=== PATIENT | female | born 1985 | race Two or more races ===

== ENCOUNTER 2020-10-10 16:04 | Inpatient (IN) | payer OTHER ==
[~2020-10-10] VITALS: Ht 172.7 cm; Wt 68.1 kg
[2020-10-10] MEDS ORDERED: CloNIDine 0.1 MG/24 HOUR PATCH TD ONE (17:00)
[2020-10-10] MEDS ORDERED: ONDANSETRON HCL 4 MG/2 ML VIAL IVP ONE (17:00)
[2020-10-10] MEDS ORDERED: SODIUM CHLORIDE 0.9% 1,000 ML IV ONE (17:00)
[2020-10-10] MEDS ORDERED: LORazepam 2 MG/ML VIAL ONE (17:23)
[2020-10-10 17:26] LABS: BASOPHILS % (AUTO) 0.3 % (0.0-2.0); EOSINOPHILS % (AUTO) 0 % (1.0-6.0); HEMATOCRIT 40.7 % (36-46); HEMOGLOBIN 13.7 g/dL (12.0-16.0); LYMPHOCYTES # (AUTO) 0.7 K/uL (1.0-4.8); LYMPHOCYTES % (AUTO) 10.7 % (22.0-44.0); MEAN CORPUSCULAR HEMOGLOBIN 29.9 pg (26.0-34.0); MEAN CORPUSCULAR HGB CONC 33.7 G/dL (31.0-37.0); MEAN CORPUSCULAR VOLUME 89 fL (80-100); MONOCYTES # (AUTO) 0.1 K/uL (0.1-1.0); MONOCYTES % (AUTO) 0.9 % (2.0-9.0); NEUTROPHILS # (AUTO) 5.7 K/uL (1.8-7.7); PLATELET COUNT (AUTO) 214 K/uL (150-450); RED BLOOD CELL COUNT(AUTO) 4.57 MIL/uL (4.00-5.20); RED CELL DISTRIBUTION WIDTH 12.8 % (11.5-14.5)
[2020-10-10 17:27] LABS: NEUTROPHILS % (AUTO) 88.1 % (40.0-70.0)
[2020-10-10] MEDS ORDERED: LORazepam 2 MG/ML VIAL IVP ONE (17:30)
[2020-10-10 17:37] LABS: ANION GAP 13 mmol/L (8-16); CALCIUM, TOTAL 9.5 mg/dL (8.8-10.5); CARBON DIOXIDE 25 mmol/L (22-29); CHLORIDE 103 mmol/L (98-107); CREATININE 0.71 mg/dL (0.60-1.30); GLOMERULAR FILTR. RATE CALC > 60 mL/min (>60); GLUCOSE,RANDOM 113 mg/dL (70-110); POTASSIUM 3.3 mmol/L (3.5-5.1); SODIUM SERUM 141 mmol/L (136-145); UREA NITROGEN, BLOOD 10 mg/dL (7-18)
[2020-10-10 17:44] LABS: ALANINE AMINOTRANSFERASE 21 U/L (12-78); ALKALINE PHOSPHATASE 76 U/L (46-116); ASPARTATE AMINOTRANSFERASE 21 U/L (15-37); BILIRUBIN,TOTAL 0.6 mg/dL (0.1-1.0); TOTAL PROTEIN, SERUM 7.8 g/dL (6.4-8.2)
[2020-10-10] MEDS ORDERED: POTASSIUM CHLORIDE 20 MEQ ER TABLET PO ONE (18:30)
[2020-10-10] MEDS ORDERED: KETOROLAC TROMETHAMINE 30 MG/ML VIAL IVP ONE (18:30)
[2020-10-10] MEDS ORDERED: ONDANSETRON HCL 4 MG/2 ML VIAL IVP PRN (19:15)
[2020-10-10 19:46] LABS: AMPHET/METH SCREEN,URINE POSITIVE (NEGATIVE); BARBITURATE SCREEN, URINE NEGATIVE (NEGATIVE); BENZODIAZEPINES SCREEN,URINE NEGATIVE (NEGATIVE); CANNABINOID SCREEN,URINE NEGATIVE (NEGATIVE); COCAINE SCREEN,URINE NEGATIVE (NEGATIVE); METHADONE SCREEN, URINE NEGATIVE (NEGATIVE); OPIATE SCREEN,URINE NEGATIVE (NEGATIVE); PHENCYCLIDINE SCREEN,URINE NEGATIVE (NEGATIVE)
[2020-10-10 20:32] LABS: COVID AG,FIA SOURCE NASOPHARYNGEAL
[2020-10-10 21:04] VITALS: BP 164/84
[2020-10-10 22:20] VITALS: BP 149/86
[2020-10-10 23:19] VITALS: BP 112/74
[2020-10-10] MEDS: HEPARIN SODIUM,PORCINE 5,000 UNITS/ML VIAL SQ SCH (23:30)
[2020-10-11] VITALS (8 sets, daily range): BP systolic 95–141; BP diastolic 56–82
[2020-10-11] MEDS: LORazepam 1 MG TABLET PO PRN ×4 (00:22→23:10)
[2020-10-11] MEDS: KETOROLAC TROMETHAMINE 30 MG/ML VIAL IVP PRN ×4 (00:23→22:04)
[2020-10-11 07:14] LABS: ANION GAP 15 mmol/L (8-16); CALCIUM, TOTAL 8.8 mg/dL (8.8-10.5); CARBON DIOXIDE 22 mmol/L (22-29); CHLORIDE 105 mmol/L (98-107); CREATININE 0.58 mg/dL (0.60-1.30); GLOMERULAR FILTR. RATE CALC > 60 mL/min (>60); GLUCOSE,RANDOM 93 mg/dL (70-110); POTASSIUM 3.5 mmol/L (3.5-5.1); SODIUM SERUM 142 mmol/L (136-145); UREA NITROGEN, BLOOD 12 mg/dL (7-18)
[2020-10-11] MEDS: HEPARIN SODIUM,PORCINE 5,000 UNITS/ML VIAL SQ SCH ×3 (08:00→23:10)
[2020-10-12] VITALS (8 sets, daily range): BP systolic 98–116; BP diastolic 56–75
[2020-10-12] MEDS: KETOROLAC TROMETHAMINE 30 MG/ML VIAL IVP PRN ×3 (05:05→17:43)
[2020-10-12] MEDS: HEPARIN SODIUM,PORCINE 5,000 UNITS/ML VIAL SQ SCH ×3 (08:17→23:46)
[2020-10-12] MEDS ORDERED: LOPERAMIDE HCL 2 MG/15 ML SUSPENSION UDCUP PO PRN (11:00)
[2020-10-12] MEDS ORDERED: PROMETHAZINE HCL 25 MG TABLET PO PRN (11:00)
[2020-10-12] MEDS ORDERED: CloNIDine HCL 0.1 MG TABLET PO PRN (11:00)
[2020-10-12] MEDS: SODIUM CHLORIDE 0.45% 1,000 ML IV SCH ×2 (11:10→23:46)
[2020-10-12] MEDS: HydrOXYzine PAMOATE 50 MG CAPSULE PO PRN ×2 (16:18→22:12)
[2020-10-12] MEDS: DICYCLOMINE HCL 10 MG CAPSULE PO PRN (19:34)
[2020-10-12] MEDS: TraZODone HCL 50 MG TABLET PO PRN (22:12)
[2020-10-12] MEDS: BACLOFEN 10 MG TABLET PO PRN (22:12)
[2020-10-13 04:25] VITALS: BP 112/76
[2020-10-13] MEDS: HydrOXYzine PAMOATE 50 MG CAPSULE PO PRN ×2 (04:26→12:03)
[2020-10-13] MEDS: KETOROLAC TROMETHAMINE 30 MG/ML VIAL IVP PRN ×3 (04:30→19:54)
[2020-10-13 07:36] VITALS: BP 93/62
[2020-10-13] MEDS: HEPARIN SODIUM,PORCINE 5,000 UNITS/ML VIAL SQ SCH ×3 (08:30→23:28)
[2020-10-13] MEDS: SODIUM CHLORIDE 0.45% 1,000 ML IV SCH (13:16)
[2020-10-13 14:08] VITALS: BP 102/64
[2020-10-13] MEDS: GABAPENTIN 300 MG CAPSULE PO SCH ×2 (15:58→23:28)
[2020-10-13] MEDS: TraZODone HCL 50 MG TABLET PO PRN (19:53)
[2020-10-13 20:00] VITALS: BP 112/64
[2020-10-14] MEDS: SODIUM CHLORIDE 0.45% 1,000 ML IV SCH ×2 (03:49→17:55)
[2020-10-14 03:52] VITALS: BP 96/63
[2020-10-14] MEDS: BACLOFEN 10 MG TABLET PO PRN ×2 (03:56→12:16)
[2020-10-14] MEDS: ACETAMINOPHEN 325 MG TABLET PO PRN ×3 (04:18→18:17)
[2020-10-14 07:49] VITALS: BP 106/64
[2020-10-14] MEDS: HEPARIN SODIUM,PORCINE 5,000 UNITS/ML VIAL SQ SCH ×3 (07:57→23:57)
[2020-10-14] MEDS: GABAPENTIN 300 MG CAPSULE PO SCH ×3 (07:58→19:43)
[2020-10-14] MEDS: DICYCLOMINE HCL 10 MG CAPSULE PO PRN (08:03)
[2020-10-14 08:44] VITALS: BP 106/64
[2020-10-14] MEDS: MAG HYDROX/AL HYDROX/SIMETH ES 30 ML SUSPENSION UDCUP PO PRN (10:18)
[2020-10-14] MEDS: LORazepam 1 MG TABLET PO PRN ×2 (12:23→19:42)
[2020-10-14 20:41] VITALS: BP 103/71
[2020-10-15] MEDS: TraZODone HCL 50 MG TABLET PO PRN (00:01)
[2020-10-15] MEDS: MAG HYDROX/AL HYDROX/SIMETH ES 30 ML SUSPENSION UDCUP PO PRN (00:01)
[2020-10-15] MEDS: ACETAMINOPHEN 325 MG TABLET PO PRN ×2 (05:17→14:56)
[2020-10-15 05:33] VITALS: BP 109/67
[2020-10-15] MEDS: SODIUM CHLORIDE 0.45% 1,000 ML IV SCH (06:40)
[2020-10-15] MEDS: BACLOFEN 10 MG TABLET PO PRN (06:40)
[2020-10-15 07:55] VITALS: BP 102/66
[2020-10-15] MEDS: HEPARIN SODIUM,PORCINE 5,000 UNITS/ML VIAL SQ SCH (08:31)
[2020-10-15] MEDS: HydrOXYzine PAMOATE 50 MG CAPSULE PO PRN (08:31)
[2020-10-15] MEDS: GABAPENTIN 300 MG CAPSULE PO SCH (08:31)
[2020-10-15] MEDS ORDERED: IBUPROFEN 800 MG TABLET PO SCH (09:57)
[2020-10-15 10:04] LABS: BASOPHILS % (AUTO) 0.6 % (0.0-2.0); EOSINOPHILS % (AUTO) 0.9 % (1.0-6.0); HEMATOCRIT 36.7 % (36-46); HEMOGLOBIN 12.2 g/dL (12.0-16.0); LYMPHOCYTES # (AUTO) 1.1 K/uL (1.0-4.8); LYMPHOCYTES % (AUTO) 21.9 % (22.0-44.0); MEAN CORPUSCULAR HGB CONC 33.3 G/dL (31.0-37.0); MEAN CORPUSCULAR VOLUME 90 fL (80-100); MONOCYTES # (AUTO) 0.2 K/uL (0.1-1.0); MONOCYTES % (AUTO) 4.3 % (2.0-9.0); NEUTROPHILS # (AUTO) 3.7 K/uL (1.8-7.7); NEUTROPHILS % (AUTO) 72.3 % (40.0-70.0); PLATELET COUNT (AUTO) 163 K/uL (150-450); RED BLOOD CELL COUNT(AUTO) 4.07 MIL/uL (4.00-5.20); RED CELL DISTRIBUTION WIDTH 13.2 % (11.5-14.5)
[2020-10-15 10:17] LABS: ANION GAP 6 mmol/L (8-16); CARBON DIOXIDE 28 mmol/L (22-29); CHLORIDE 106 mmol/L (98-107); CREATININE 0.61 mg/dL (0.60-1.30); GLOMERULAR FILTR. RATE CALC > 60 mL/min (>60); GLUCOSE,RANDOM 88 mg/dL (70-110); POTASSIUM 3.4 mmol/L (3.5-5.1); SODIUM SERUM 140 mmol/L (136-145); UREA NITROGEN, BLOOD 7 mg/dL (7-18)
[2020-10-15 10:21] LABS: ALANINE AMINOTRANSFERASE 19 U/L (12-78); ALBUMIN 2.9 g/dL (3.4-5.0); ALKALINE PHOSPHATASE 67 U/L (46-116); ASPARTATE AMINOTRANSFERASE 14 U/L (15-37); BILIRUBIN,TOTAL 0.2 mg/dL (0.1-1.0); TOTAL PROTEIN, SERUM 6.1 g/dL (6.4-8.2)
[2020-10-15] MEDS ORDERED: POTASSIUM CHLORIDE 20 MEQ ER TABLET PO ONE (11:00)
[2020-10-15 11:52] VITALS: BP 102/66
[2020-10-15] MEDS ORDERED: GABA-1181 PO (14:59)
[2020-10-15] MEDS: DICYCLOMINE HCL 10 MG CAPSULE PO PRN (15:21)
== END 2020-10-15 15:40 | DRG 897 ==
LOC: EMS 16:04 → 6S 19:04
PROVIDERS: ADMIT Internal Medicine; ATTEND Internal Medicine
DX: F11.13 Opioid abuse with withdrawal (principal); E87.6 Hypokalemia; F17.200 Nicotine dependence, unspecified, uncomplicated; M54.30 Sciatica, unspecified side; F15.10 Other stimulant abuse, uncomplicated; Z20.822 Contact with and (suspected) exposure to COVID-19
CPT/HCPCS: 80048; 80053; 85025; 99291; G0480; J1644; J1885; J2060; J2405; J7030

== ENCOUNTER 2021-01-22 02:03 | Inpatient (IN) | payer OTHER ==
[~2021-01-22] VITALS: Ht 174 cm; Wt 65.5 kg
[~2021-01-22 02:03] MED LIST: GABA-1181 PO
[2021-01-22 04:30] LABS: BASOPHILS % (AUTO) 0.5 % (0.0-2.0); EOSINOPHILS % (AUTO) 0.6 % (1.0-6.0); HEMATOCRIT 36.3 % (36-46); HEMOGLOBIN 12.5 g/dL (12.0-16.0); LYMPHOCYTES # (AUTO) 1.2 K/uL (1.0-4.8); LYMPHOCYTES % (AUTO) 21.6 % (22.0-44.0); MEAN CORPUSCULAR HEMOGLOBIN 31.8 pg (26.0-34.0); MEAN CORPUSCULAR HGB CONC 34.5 G/dL (31.0-37.0); MEAN CORPUSCULAR VOLUME 92 fL (80-100); MONOCYTES # (AUTO) 0.3 K/uL (0.1-1.0); MONOCYTES % (AUTO) 4.4 % (2.0-9.0); NEUTROPHILS # (AUTO) 4.2 K/uL (1.8-7.7); NEUTROPHILS % (AUTO) 72.9 % (40.0-70.0); PLATELET COUNT (AUTO) 232 K/uL (150-450); RED BLOOD CELL COUNT(AUTO) 3.94 MIL/uL (4.00-5.20); RED CELL DISTRIBUTION WIDTH 12.1 % (11.5-14.5)
[2021-01-22 04:38] LABS: ANION GAP 9 mmol/L (8-16); CARBON DIOXIDE 28 mmol/L (22-29); CHLORIDE 105 mmol/L (98-107); CREATININE 0.72 mg/dL (0.60-1.30); GLOMERULAR FILTR. RATE CALC > 60 mL/min (>60); GLUCOSE,RANDOM 104 mg/dL (70-110); POTASSIUM 3.3 mmol/L (3.5-5.1); SODIUM SERUM 142 mmol/L (136-145); UREA NITROGEN, BLOOD 12 mg/dL (7-18)
[2021-01-22 04:49] LABS: ALANINE AMINOTRANSFERASE 22 U/L (12-78); ALBUMIN 3.7 g/dL (3.4-5.0); ALKALINE PHOSPHATASE 82 U/L (46-116); ASPARTATE AMINOTRANSFERASE 17 U/L (15-37); BILIRUBIN,TOTAL 0.3 mg/dL (0.1-1.0); CALCIUM, TOTAL 8.9 mg/dL (8.8-10.5); HCG,QUANTITATIVE < 1 mIU/mL (0-6); TOTAL PROTEIN, SERUM 7.8 g/dL (6.4-8.2)
[2021-01-22] MEDS ORDERED: CloNIDine HCL 0.1 MG TABLET PO ONE (05:00)
[2021-01-22] MEDS ORDERED: LORazepam 1 MG TABLET PO ONE (05:00)
[2021-01-22] MEDS ORDERED: ONDANSETRON HCL 4 MG TABLET PO ONE (05:00)
[2021-01-22] MEDS ORDERED: POTASSIUM CHLORIDE 20 MEQ ER TABLET PO ONE (05:15)
[2021-01-22 05:17] LABS: COVID AG,FIA SOURCE NASOPHARYNGEAL
[2021-01-22 05:34] LABS: AMPHET/METH SCREEN,URINE POSITIVE (NEGATIVE); BARBITURATE SCREEN, URINE NEGATIVE (NEGATIVE); BENZODIAZEPINES SCREEN,URINE NEGATIVE (NEGATIVE); CANNABINOID SCREEN,URINE NEGATIVE (NEGATIVE); COCAINE SCREEN,URINE POSITIVE (NEGATIVE); METHADONE SCREEN, URINE NEGATIVE (NEGATIVE); OPIATE SCREEN,URINE POSITIVE (NEGATIVE)
[2021-01-22 05:38] LABS: APPEARANCE,URINE RPT (CLEAR); BILIRUBIN,URINE NEGATIVE (NEGATIVE); GLUCOSE, URINE (UA) NEGATIVE (NEGATIVE); KETONES,URINE 40 mg/dL (NEGATIVE); LEUKOCYTE ESTERASE ,URINE NEGATIVE (NEGATIVE); NITRATE,URINE NEGATIVE (NEGATIVE); OCCULT BLOOD,URINE NEGATIVE (NEGATIVE); PROTEIN,URINE NEGATIVE (NEGATIVE)
[2021-01-22 05:50] LABS: PHENCYCLIDINE SCREEN,URINE NEGATIVE (NEGATIVE)
[2021-01-22 05:52] LABS: BACTERIA,URINE Rare /HPF (None Seen); RBC,URINE None Seen /HPF (0-2); WBC,URINE 0-2 /HPF (0-5)
[2021-01-22] MEDS ORDERED: ONDANSETRON HCL 4 MG/2 ML VIAL IVP PRN ×2 (06:00→06:15)
[2021-01-22] MEDS ORDERED: 0.9% SODIUM CHLORIDE 10 ML SYRINGE IVP PRN (06:00)
[2021-01-22] MEDS ORDERED: ACETAMINOPHEN 325 MG TABLET PO PRN (06:00)
[2021-01-22] MEDS ORDERED: GABAPENTIN 300 MG CAPSULE PO SCH (06:30)
[2021-01-22] MEDS ORDERED: POTASSIUM CHL 10 MEQ/WATER 50 ML IV PRN (07:15)
[2021-01-22] MEDS ORDERED: POTASSIUM CHLORIDE 20 MEQ ER TABLET PO PRN (07:15)
[2021-01-22] MEDS: HEPARIN SODIUM,PORCINE 5,000 UNITS/ML VIAL SQ SCH ×2 (07:16→15:49)
[2021-01-22 08:35] VITALS: BP 114/77
[2021-01-22] MEDS ORDERED: KETOROLAC TROMETHAMINE 30 MG/ML VIAL IVP PRN (08:48)
[2021-01-22] MEDS: FAMOTIDINE 10 MG/ML 2 ML VIAL IVP SCH ×2 (09:00→20:07)
[2021-01-22] MEDS: ACETAMINOPHEN 325 MG TABLET PO PRN (10:08)
[2021-01-22] MEDS: GABAPENTIN 300 MG CAPSULE PO SCH ×2 (10:09→15:49)
[2021-01-22] MEDS: LORazepam 0.5 MG TABLET PO PRN (10:09)
[2021-01-22 15:25] VITALS: BP 101/67
[2021-01-22 20:55] VITALS: BP 102/72
[2021-01-23] MEDS: HEPARIN SODIUM,PORCINE 5,000 UNITS/ML VIAL SQ SCH ×4 (00:56→23:42)
[2021-01-23] MEDS: GABAPENTIN 300 MG CAPSULE PO SCH ×4 (00:56→23:42)
[2021-01-23 04:55] VITALS: BP 115/73
[2021-01-23 08:08] VITALS: BP 98/66
[2021-01-23] MEDS: ACETAMINOPHEN 325 MG TABLET PO PRN (08:52)
[2021-01-23] MEDS: FAMOTIDINE 10 MG/ML 2 ML VIAL IVP SCH ×2 (08:53→20:07)
[2021-01-23] MEDS ORDERED: SODIUM CHLORIDE 0.9% 1,000 ML IV ONE (11:45)
[2021-01-23 19:40] VITALS: BP 105/70
[2021-01-23] MEDS: LORazepam 0.5 MG TABLET PO PRN (20:05)
[2021-01-23] MEDS ORDERED: INFLUENZA VIRUS VACCINE QVS 2021-22 (6MO+)/PF 60 MCG/0.5 ML SYRINGE IM. ONE (23:45)
[2021-01-24] MEDS: LORazepam 0.5 MG TABLET PO PRN (03:40)
[2021-01-24 04:25] VITALS: BP 108/69
[2021-01-24 07:46] VITALS: BP 110/72
[2021-01-24 08:30] LABS: ANION GAP 9 mmol/L (8-16); CALCIUM, TOTAL 8.8 mg/dL (8.8-10.5); CARBON DIOXIDE 27 mmol/L (22-29); CHLORIDE 108 mmol/L (98-107); CREATININE 0.64 mg/dL (0.60-1.30); GLOMERULAR FILTR. RATE CALC > 60 mL/min (>60); GLUCOSE,RANDOM 92 mg/dL (70-110); POTASSIUM 3.5 mmol/L (3.5-5.1); SODIUM SERUM 144 mmol/L (136-145); UREA NITROGEN, BLOOD 9 mg/dL (7-18)
[2021-01-24] MEDS: GABAPENTIN 300 MG CAPSULE PO SCH ×3 (08:36→23:02)
[2021-01-24] MEDS: HEPARIN SODIUM,PORCINE 5,000 UNITS/ML VIAL SQ SCH ×3 (08:36→23:03)
[2021-01-24] MEDS: FAMOTIDINE 10 MG/ML 2 ML VIAL IVP SCH (08:36)
[2021-01-24] MEDS: CYCLOBENZAPRINE HCL 10 MG TABLET PO PRN ×2 (14:53→23:02)
[2021-01-24 20:12] VITALS: BP 106/71
[2021-01-24] MEDS: FAMOTIDINE 20 MG TABLET PO SCH (20:22)
[2021-01-25 05:48] VITALS: BP 110/74
[2021-01-25] MEDS: GABAPENTIN 300 MG CAPSULE PO SCH (07:46)
[2021-01-25] MEDS: FAMOTIDINE 20 MG TABLET PO SCH (07:46)
[2021-01-25] MEDS: HEPARIN SODIUM,PORCINE 5,000 UNITS/ML VIAL SQ SCH (07:47)
[2021-01-25 08:28] VITALS: BP 112/73
== END 2021-01-25 10:15 | DRG 897 ==
LOC: EMS 02:04 → 6S 08:15
PROVIDERS: ADMIT Internal Medicine; ATTEND Internal Medicine
DX: F11.13 Opioid abuse with withdrawal (principal); R65.10 Systemic inflammatory response syndrome (SIRS) of non-infectious origin without acute organ dysfunction; F41.9 Anxiety disorder, unspecified; E87.6 Hypokalemia; Z87.891 Personal history of nicotine dependence; Z98.891 History of uterine scar from previous surgery; Z20.822 Contact with and (suspected) exposure to COVID-19
CPT/HCPCS: 71045; 80048; 80053; 81001; 84702; 85025; 90686; 99285; G0480; J1644; J3490; J7030; Q0162; 36415-L1; 36415-TC; G0008; U0003

== ENCOUNTER 2021-12-03 13:54 | Inpatient (IN) | payer OTHER ==
[~2021-12-03] VITALS: Ht 172.7 cm; Wt 65.9 kg
[2021-12-03] MEDS ORDERED: SODIUM CHLORIDE 0.9% 1,000 ML IV ONE (14:45)
[2021-12-03] MEDS ORDERED: KETOROLAC TROMETHAMINE 30 MG/ML VIAL IVP ONE (14:45)
[2021-12-03 14:47] LABS: COVID AG,FIA SOURCE NASOPHARYNGEAL
[2021-12-03 14:49] LABS: BASOPHILS % (AUTO) 0.4 % (0.0-2.0); EOSINOPHILS % (AUTO) 0.3 % (1.0-6.0); HEMATOCRIT 33.8 % (36-46); HEMOGLOBIN 11.2 g/dL (12.0-16.0); LYMPHOCYTES # (AUTO) 0.7 K/uL (1.0-4.8); LYMPHOCYTES % (AUTO) 14.4 % (22.0-44.0); MEAN CORPUSCULAR HEMOGLOBIN 28.8 pg (26.0-34.0); MEAN CORPUSCULAR HGB CONC 33.2 G/dL (31.0-37.0); MEAN CORPUSCULAR VOLUME 87 fL (80-100); MONOCYTES # (AUTO) 0.1 K/uL (0.1-1.0); MONOCYTES % (AUTO) 2.4 % (2.0-9.0); NEUTROPHILS # (AUTO) 4.1 K/uL (1.8-7.7); NEUTROPHILS % (AUTO) 82.5 % (40.0-70.0); PLATELET COUNT (AUTO) 233 K/uL (150-450); RED CELL DISTRIBUTION WIDTH 14.1 % (11.5-14.5)
[2021-12-03 15:01] LABS: ANION GAP 9 mmol/L (8-16); CALCIUM, TOTAL 8.5 mg/dL (8.8-10.5); CARBON DIOXIDE 29 mmol/L (22-29); CHLORIDE 99 mmol/L (98-107); CREATININE 0.65 mg/dL (0.60-1.30); GLUCOSE,RANDOM 98 mg/dL (70-110); POTASSIUM 3.9 mmol/L (3.5-5.1); SODIUM SERUM 137 mmol/L (136-145); UREA NITROGEN, BLOOD 9 mg/dL (7-18)
[2021-12-03 15:02] LABS: GLOMERULAR FILTR. RATE CALC > 60 mL/min (>60)
[2021-12-03 15:07] LABS: ALANINE AMINOTRANSFERASE 17 U/L (12-78); ALBUMIN 3.3 g/dL (3.4-5.0); ALKALINE PHOSPHATASE 78 U/L (46-116); ASPARTATE AMINOTRANSFERASE 21 U/L (15-37); BILIRUBIN,TOTAL 0.4 mg/dL (0.1-1.0); TOTAL PROTEIN, SERUM 7.1 g/dL (6.4-8.2)
[2021-12-03] MEDS ORDERED: ONDANSETRON HCL 4 MG/2 ML VIAL IVP PRN (15:15)
[2021-12-03] MEDS ORDERED: ACETAMINOPHEN 325 MG TABLET PO PRN (15:15)
[2021-12-03] MEDS ORDERED: LOPERAMIDE HCL 2 MG CAPSULE PO PRN (15:30)
[2021-12-03] MEDS ORDERED: MAGNESIUM SULFATE 2 GM, MVI, ADULT NO.1 WITH VIT K 10 ML, THIAMINE 100 MG, FOLIC ACID 1... IV ONE ×5 (16:00)
[2021-12-03 16:27] VITALS: BP 107/64
[2021-12-03] MEDS: LORazepam 2 MG/ML VIAL IVP PRN (18:53)
[2021-12-03 19:55] VITALS: BP 114/70
[2021-12-03] MEDS: TEMAZEPAM 15 MG CAPSULE PO SCH (20:58)
[2021-12-04 05:47] VITALS: BP 128/79
[2021-12-04 08:06] VITALS: BP 133/82
[2021-12-04] MEDS: DICYCLOMINE HCL 10 MG CAPSULE PO PRN (08:58)
[2021-12-04] MEDS: ACETAMINOPHEN/CODEINE 300-15 MG TABLET PO PRN (08:58)
[2021-12-04 09:19] LABS: AMPHET/METH SCREEN,URINE POSITIVE (NEGATIVE); BARBITURATE SCREEN, URINE NEGATIVE (NEGATIVE); BENZODIAZEPINES SCREEN,URINE NEGATIVE (NEGATIVE); CANNABINOID SCREEN,URINE NEGATIVE (NEGATIVE); COCAINE SCREEN,URINE NEGATIVE (NEGATIVE); METHADONE SCREEN, URINE NEGATIVE (NEGATIVE); OPIATE SCREEN,URINE NEGATIVE (NEGATIVE); PHENCYCLIDINE SCREEN,URINE NEGATIVE (NEGATIVE)
[2021-12-04] MEDS: LORazepam 2 MG/ML VIAL IVP PRN ×2 (11:47→23:26)
[2021-12-04 13:14] VITALS: BP 140/84
[2021-12-04] MEDS ORDERED: KETOROLAC TROMETHAMINE 15 MG/ML VIAL IVP ONE (13:15)
[2021-12-04 15:12] VITALS: BP 138/80
[2021-12-04 20:00] VITALS: BP 120/78
[2021-12-04] MEDS: TEMAZEPAM 15 MG CAPSULE PO SCH (21:12)
[2021-12-05 04:21] VITALS: BP 138/82
[2021-12-05 06:31] LABS: BASOPHILS % (AUTO) 0.3 % (0.0-2.0); EOSINOPHILS % (AUTO) 0.2 % (1.0-6.0); HEMATOCRIT 34.1 % (36-46); HEMOGLOBIN 11.5 g/dL (12.0-16.0); LYMPHOCYTES # (AUTO) 1.2 K/uL (1.0-4.8); LYMPHOCYTES % (AUTO) 13.3 % (22.0-44.0); MEAN CORPUSCULAR HGB CONC 33.8 G/dL (31.0-37.0); MEAN CORPUSCULAR VOLUME 86 fL (80-100); MONOCYTES # (AUTO) 0.3 K/uL (0.1-1.0); MONOCYTES % (AUTO) 3.7 % (2.0-9.0); NEUTROPHILS # (AUTO) 7.1 K/uL (1.8-7.7); NEUTROPHILS % (AUTO) 82.5 % (40.0-70.0); PLATELET COUNT (AUTO) 241 K/uL (150-450); RED BLOOD CELL COUNT(AUTO) 3.97 MIL/uL (4.00-5.20); RED CELL DISTRIBUTION WIDTH 13.9 % (11.5-14.5)
[2021-12-05 06:40] LABS: ANION GAP 12 mmol/L (8-16); CALCIUM, TOTAL 8.3 mg/dL (8.8-10.5); CARBON DIOXIDE 25 mmol/L (22-29); CHLORIDE 103 mmol/L (98-107); CREATININE 0.56 mg/dL (0.60-1.30); GLUCOSE,RANDOM 99 mg/dL (70-110); POTASSIUM 3.2 mmol/L (3.5-5.1); SODIUM SERUM 140 mmol/L (136-145); UREA NITROGEN, BLOOD 6 mg/dL (7-18)
[2021-12-05 06:49] LABS: GLOMERULAR FILTR. RATE CALC > 60 mL/min (>60)
[2021-12-05 07:53] VITALS: BP 134/80
[2021-12-05] MEDS: ACETAMINOPHEN/CODEINE 300-15 MG TABLET PO PRN ×3 (08:46→23:54)
[2021-12-05] MEDS: LORazepam 2 MG/ML VIAL IVP PRN (10:08)
[2021-12-05] MEDS: METOCLOPRAMIDE HCL 5 MG/ML 2 ML VIAL IVP PRN (10:08)
[2021-12-05] MEDS ORDERED: POTASSIUM CHLORIDE 20 MEQ ER TABLET PO ONE (15:00)
[2021-12-05] MEDS: 1: MAGNESIUM SULFATE 2 GM, MVI, ADULT NO.1 WITH VIT K 10 ML, THIAMINE 100 MG, FOLIC ACID IV SCH ×5 (15:40)
[2021-12-05 15:51] VITALS: BP 103/62
[2021-12-05 19:10] VITALS: BP 128/84
[2021-12-05] MEDS: TEMAZEPAM 15 MG CAPSULE PO SCH (21:06)
[2021-12-06 04:27] VITALS: BP 121/79
[2021-12-06] MEDS ORDERED: SODIUM CHLORIDE 0.9% 1,000 ML ONE (05:21)
[2021-12-06] MEDS: 1: MAGNESIUM SULFATE 2 GM, MVI, ADULT NO.1 WITH VIT K 10 ML, THIAMINE 100 MG, FOLIC ACID IV SCH ×10 (05:39→18:14)
[2021-12-06] MEDS: ACETAMINOPHEN/CODEINE 300-15 MG TABLET PO PRN ×3 (05:39→18:14)
[2021-12-06 07:24] VITALS: BP 114/74
[2021-12-06] MEDS: METOCLOPRAMIDE HCL 5 MG/ML 2 ML VIAL IVP PRN (11:43)
[2021-12-06] MEDS: DICYCLOMINE HCL 10 MG CAPSULE PO PRN (11:49)
[2021-12-06 19:40] VITALS: BP 113/62
[2021-12-06] MEDS: TEMAZEPAM 15 MG CAPSULE PO SCH (20:34)
[2021-12-07 06:07] LABS: BASOPHILS % (AUTO) 0.7 % (0.0-2.0); EOSINOPHILS % (AUTO) 1.3 % (1.0-6.0); HEMATOCRIT 35.1 % (36-46); LYMPHOCYTES # (AUTO) 1.4 K/uL (1.0-4.8); LYMPHOCYTES % (AUTO) 22.2 % (22.0-44.0); MEAN CORPUSCULAR HEMOGLOBIN 29.2 pg (26.0-34.0); MEAN CORPUSCULAR HGB CONC 34.2 G/dL (31.0-37.0); MEAN CORPUSCULAR VOLUME 85 fL (80-100); MONOCYTES # (AUTO) 0.3 K/uL (0.1-1.0); MONOCYTES % (AUTO) 4.3 % (2.0-9.0); NEUTROPHILS # (AUTO) 4.6 K/uL (1.8-7.7); NEUTROPHILS % (AUTO) 71.5 % (40.0-70.0); PLATELET COUNT (AUTO) 249 K/uL (150-450); RED BLOOD CELL COUNT(AUTO) 4.12 MIL/uL (4.00-5.20); RED CELL DISTRIBUTION WIDTH 14.1 % (11.5-14.5)
[2021-12-07 06:18] LABS: ANION GAP 8 mmol/L (8-16); CALCIUM, TOTAL 8.1 mg/dL (8.8-10.5); CARBON DIOXIDE 26 mmol/L (22-29); CHLORIDE 105 mmol/L (98-107); CREATININE 0.59 mg/dL (0.60-1.30); GLUCOSE,RANDOM 92 mg/dL (70-110); POTASSIUM 3.7 mmol/L (3.5-5.1); SODIUM SERUM 139 mmol/L (136-145); UREA NITROGEN, BLOOD 6 mg/dL (7-18)
[2021-12-07 06:20] LABS: GLOMERULAR FILTR. RATE CALC > 60 mL/min (>60)
[2021-12-07] MEDS: 1: MAGNESIUM SULFATE 2 GM, MVI, ADULT NO.1 WITH VIT K 10 ML, THIAMINE 100 MG, FOLIC ACID IV SCH ×5 (07:26)
[2021-12-07 07:29] VITALS: BP 114/76
[2021-12-07] MEDS: ACETAMINOPHEN/CODEINE 300-15 MG TABLET PO PRN (08:40)
[2021-12-07] MEDS ORDERED: ACETAMINOPHEN 325 MG TABLET PO PRN (08:45)
[2021-12-07] MEDS ORDERED: GABA-1181 PO (08:46)
== END 2021-12-07 14:55 | DRG 897 ==
LOC: EMS 13:54 → 6S 15:29
PROVIDERS: ADMIT Internal Medicine; ATTEND Internal Medicine
DX: F11.13 Opioid abuse with withdrawal (principal); D64.9 Anemia, unspecified; Z20.822 Contact with and (suspected) exposure to COVID-19; Z79.899 Other long term (current) drug therapy
CPT/HCPCS: 80048; 80053; 80307; 84132; 85025; 99285; J1885; J2060; J2765; J3411; J3475; J3490; J7030

== ENCOUNTER 2022-12-18 08:56 | Inpatient (IN) | payer OTHER ==
[~2022-12-18] VITALS: Ht 172.7 cm; Wt 63.6 kg
[2022-12-18 09:54] LABS: COVID AG,FIA SOURCE NASOPHARYNGEAL
[2022-12-18 09:59] LABS: BASOPHILS % (AUTO) 0.5 % (0.0-2.0); EOSINOPHILS % (AUTO) 0.1 % (1.0-6.0); HEMATOCRIT 39.4 % (36-46); HEMOGLOBIN 13.1 g/dL (12.0-16.0); LYMPHOCYTES # (AUTO) 0.6 K/uL (1.0-4.8); LYMPHOCYTES % (AUTO) 8.5 % (22.0-44.0); MEAN CORPUSCULAR HGB CONC 33.2 G/dL (31.0-37.0); MEAN CORPUSCULAR VOLUME 84 fL (80-100); MONOCYTES # (AUTO) 0.2 K/uL (0.1-1.0); MONOCYTES % (AUTO) 2.9 % (2.0-9.0); NEUTROPHILS # (AUTO) 6.6 K/uL (1.8-7.7); PLATELET COUNT (AUTO) 267 K/uL (150-450); RED BLOOD CELL COUNT(AUTO) 4.66 MIL/uL (4.00-5.20); RED CELL DISTRIBUTION WIDTH 15.3 % (11.5-14.5)
[2022-12-18 10:09] LABS: ANION GAP 15 mmol/L (8-16); CALCIUM, TOTAL 9.1 mg/dL (8.8-10.5); CARBON DIOXIDE 20 mmol/L (22-29); CHLORIDE 102 mmol/L (98-107); CREATININE 0.55 mg/dL (0.60-1.30); GLOMERULAR FILTR. RATE CALC > 60 mL/min (>60); GLUCOSE,RANDOM 96 mg/dL (70-110); POTASSIUM 3.4 mmol/L (3.5-5.1); SODIUM SERUM 137 mmol/L (136-145)
[2022-12-18 10:14] LABS: ALANINE AMINOTRANSFERASE 13 U/L (12-78); ALBUMIN 3.5 g/dL (3.4-5.0); ALKALINE PHOSPHATASE 88 U/L (46-116); ASPARTATE AMINOTRANSFERASE 18 U/L (15-37); BILIRUBIN,TOTAL 0.5 mg/dL (0.1-1.0); TOTAL PROTEIN, SERUM 7.7 g/dL (6.4-8.2)
[2022-12-18] MEDS ORDERED: POTASSIUM CHLORIDE 10% 40 MEQ/30 ML LIQUID UDCUP PO ONE (11:15)
[2022-12-18] MEDS ORDERED: HydrOXYzine PAMOATE 50 MG CAPSULE PO PRN (13:45)
[2022-12-18] MEDS ORDERED: CloNIDine HCL 0.1 MG TABLET PO PRN (13:45)
[2022-12-18] MEDS ORDERED: POTASSIUM CHLORIDE 20 MEQ ER TABLET PO PRN (13:45)
[2022-12-18] MEDS ORDERED: POTASSIUM CHL 10 MEQ/WATER 50 ML IV PRN (13:45)
[2022-12-18] MEDS: IBUPROFEN 600 MG TABLET PO PRN (14:22)
[2022-12-18] MEDS: CloNIDine HCL 0.1 MG TABLET PO SCH ×2 (17:45→22:00)
[2022-12-18 19:45] VITALS: BP 115/72; PULSE 89; RESP 16; TEMP 98
[2022-12-18 22:13] VITALS: BP 106/75; PULSE 94
[2022-12-19] VITALS (10 sets, daily range): BP systolic 97–115; BP diastolic 50–73; PULSE 78–107; RESP 16–20; TEMP 97.7–98.9; O2SAT 96
[2022-12-19] MEDS: IBUPROFEN 600 MG TABLET PO PRN (00:02)
[2022-12-19] MEDS: CloNIDine HCL 0.1 MG TABLET PO SCH ×4 (06:00→20:45)
[2022-12-19] MEDS: FLUoxetine HCL 20 MG CAPSULE PO SCH (12:47)
[2022-12-19] MEDS: ONDANSETRON HCL 4 MG/2 ML VIAL IM PRN (18:26)
[2022-12-19 21:46] LABS: AMPHET/METH SCREEN,URINE NEGATIVE (NEGATIVE); BARBITURATE SCREEN, URINE NEGATIVE (NEGATIVE); BENZODIAZEPINES SCREEN,URINE NEGATIVE (NEGATIVE); CANNABINOID SCREEN,URINE NEGATIVE (NEGATIVE); COCAINE SCREEN,URINE NEGATIVE (NEGATIVE); METHADONE SCREEN, URINE NEGATIVE (NEGATIVE); OPIATE SCREEN,URINE NEGATIVE (NEGATIVE); PHENCYCLIDINE SCREEN,URINE NEGATIVE (NEGATIVE)
[2022-12-20 05:34] VITALS: BP 98/59; PULSE 96; RESP 18; TEMP 97.9
[2022-12-20] MEDS: CloNIDine HCL 0.1 MG TABLET PO SCH ×4 (06:00→21:55)
[2022-12-20 07:00] VITALS: BP 89/55; PULSE 98; RESP 19; TEMP 99.1
[2022-12-20] MEDS: FLUoxetine HCL 20 MG CAPSULE PO SCH (08:12)
[2022-12-20] MEDS: ONDANSETRON HCL 4 MG/2 ML VIAL IM PRN ×2 (08:14→16:53)
[2022-12-20] MEDS: IBUPROFEN 600 MG TABLET PO PRN (16:59)
[2022-12-20 17:02] VITALS: BP 96/50; PULSE 105; RESP 18
[2022-12-20 20:30] VITALS: BP 107/54; PULSE 85; RESP 18; TEMP 97.5
[2022-12-20] MEDS ORDERED: MELATONIN 3 MG TABLET PO PRN (21:30)
[2022-12-20] MEDS: MAG HYDROX/AL HYDROX/SIMETH ES 30 ML SUSPENSION UDCUP PO PRN (22:41)
[2022-12-21 04:57] VITALS: BP 116/69; PULSE 84; RESP 18; TEMP 99.7
[2022-12-21] MEDS: CloNIDine HCL 0.1 MG TABLET PO SCH ×2 (05:39→12:00)
[2022-12-21] MEDS: IBUPROFEN 600 MG TABLET PO PRN (05:40)
[2022-12-21 08:51] VITALS: BP 131/94; PULSE 87; RESP 20; TEMP 98.7
[2022-12-21] MEDS: FLUoxetine HCL 20 MG CAPSULE PO SCH (09:01)
[2022-12-21] MEDS ORDERED: FLUO20CA36 PO (12:07)
[2022-12-21] MEDS: MAG HYDROX/AL HYDROX/SIMETH ES 30 ML SUSPENSION UDCUP PO PRN (15:48)
[2022-12-21 17:14] VITALS: BP 106/57; PULSE 79; RESP 20; TEMP 99.4
== END 2022-12-21 19:12 | DRG 897 ==
LOC: EMS 08:58 → AHU 11:26 → 6S 14:56
PROVIDERS: ADMIT Internal Medicine; ATTEND Internal Medicine
DX: F11.93 Opioid use, unspecified with withdrawal (principal); F33.2 Major depressive disorder, recurrent severe without psychotic features; E87.6 Hypokalemia; F14.90 Cocaine use, unspecified, uncomplicated; Z20.822 Contact with and (suspected) exposure to COVID-19; F41.9 Anxiety disorder, unspecified; Z79.899 Other long term (current) drug therapy; Z98.891 History of uterine scar from previous surgery
CPT/HCPCS: 80053; 80307; 84132; 84703; 85025; 99285; G0480; J2405

== ENCOUNTER 2023-05-26 13:16 | Inpatient (IN) | payer OTHER ==
[~2023-05-26] VITALS: Ht 172.7 cm; Wt 65.0 kg
[~2023-05-26 13:16] MED LIST changes: +FLUO20CA36 PO; -GABA-1181 PO
[2023-05-26 13:59] LABS: BASOPHILS % (AUTO) 0.4 % (0.0-2.0); EOSINOPHILS % (AUTO) 0.1 % (1.0-6.0); HEMATOCRIT 34.7 % (36-46); HEMOGLOBIN 11.4 g/dL (12.0-16.0); LYMPHOCYTES # (AUTO) 1.2 K/uL (1.0-4.8); LYMPHOCYTES % (AUTO) 20.2 % (22.0-44.0); MEAN CORPUSCULAR HEMOGLOBIN 29.1 pg (26.0-34.0); MEAN CORPUSCULAR HGB CONC 32.9 G/dL (31.0-37.0); MEAN CORPUSCULAR VOLUME 89 fL (80-100); MONOCYTES # (AUTO) 0.2 K/uL (0.1-1.0); MONOCYTES % (AUTO) 2.7 % (2.0-9.0); NEUTROPHILS # (AUTO) 4.6 K/uL (1.8-7.7); NEUTROPHILS % (AUTO) 76.6 % (40.0-70.0); PLATELET COUNT (AUTO) 250 K/uL (150-450); RED BLOOD CELL COUNT(AUTO) 3.92 MIL/uL (4.00-5.20); RED CELL DISTRIBUTION WIDTH 13.1 % (11.5-14.5)
[2023-05-26] MEDS ORDERED: MAG HYDROX/ALUMINUM HYD/SIMETH 30 ML SUSPENSION UDCUP PO ONE (14:00)
[2023-05-26] MEDS ORDERED: ONDANSETRON HCL 4 MG/2 ML VIAL IVP ONE (14:00)
[2023-05-26] MEDS ORDERED: FAMOTIDINE 20 MG/2 ML VIAL IVP ONE (14:00)
[2023-05-26] MEDS ORDERED: ACETAMINOPHEN 500 MG TABLET PO ONE (14:00)
[2023-05-26] MEDS ORDERED: KETOROLAC TROMETHAMINE 30 MG/ML VIAL IVP ONE (14:00)
[2023-05-26 14:13] LABS: ANION GAP 9 mmol/L (8-16); CALCIUM, TOTAL 9.2 mg/dL (8.8-10.5); CARBON DIOXIDE 26 mmol/L (22-29); CHLORIDE 105 mmol/L (98-107); CREATININE 0.52 mg/dL (0.60-1.30); GLOMERULAR FILTR. RATE CALC > 60 mL/min (>60); GLUCOSE,RANDOM 100 mg/dL (70-110); POTASSIUM 3.7 mmol/L (3.5-5.1); SODIUM SERUM 140 mmol/L (136-145); UREA NITROGEN, BLOOD 6 mg/dL (7-18)
[2023-05-26 14:19] LABS: ALANINE AMINOTRANSFERASE 24 U/L (12-78); ALBUMIN 3.6 g/dL (3.4-5.0); ALKALINE PHOSPHATASE 72 U/L (46-116); ASPARTATE AMINOTRANSFERASE 20 U/L (15-37); BILIRUBIN,TOTAL 0.3 mg/dL (0.1-1.0); LIPASE 80 U/L (16-77); TOTAL PROTEIN, SERUM 6.9 g/dL (6.4-8.2)
[2023-05-26 15:08] LABS: ALCOHOL, BLOOD (SERUM) < 3 mg/dL (0-10)
[2023-05-26 15:36] LABS: COVID AG,FIA SOURCE NASAL SWAB
[2023-05-26 16:04] LABS: SARS-COV2 (COVID) ANTIGEN,FIA Negative (Negative)
[2023-05-26 18:24] VITALS: BP 102/60; PULSE 74; RESP 20; TEMP 98.4
[2023-05-26 19:28] VITALS: BP 113/59; PULSE 77; RESP 18; TEMP 98.4
[2023-05-26] MEDS ORDERED: LOPERAMIDE HCL 2 MG CAPSULE PO PRN (19:30)
[2023-05-26] MEDS ORDERED: DICYCLOMINE HCL 10 MG CAPSULE PO PRN (19:30)
[2023-05-26] MEDS ORDERED: METOCLOPRAMIDE HCL 5 MG/ML 2 ML VIAL IVP PRN (19:30)
[2023-05-26] MEDS: TEMAZEPAM 15 MG CAPSULE PO SCH (20:28)
[2023-05-26] MEDS: ACETAMINOPHEN 325 MG TABLET PO PRN (20:29)
[2023-05-27 04:33] LABS: PH,URINE DRUG SCREEN 6.5 (5.0-8.0)
[2023-05-27 04:37] LABS: ALCOHOL, URINE DRUG SCREEN NEGATIVE (NEGATIVE); AMPHET/METH SCREEN,URINE NEGATIVE (NEGATIVE); BARBITURATE SCREEN, URINE NEGATIVE (NEGATIVE); BENZODIAZEPINES SCREEN,URINE NEGATIVE (NEGATIVE); CANNABINOID SCREEN,URINE NEGATIVE (NEGATIVE); COCAINE SCREEN,URINE NEGATIVE (NEGATIVE); METHADONE SCREEN, URINE NEGATIVE (NEGATIVE); OPIATE SCREEN,URINE NEGATIVE (NEGATIVE); PHENCYCLIDINE SCREEN,URINE NEGATIVE (NEGATIVE)
[2023-05-27 04:45] VITALS: BP 116/57; PULSE 79; RESP 18; TEMP 98
[2023-05-27] MEDS: LORazepam 2 MG/ML VIAL IVP PRN ×2 (08:32→16:56)
[2023-05-27] MEDS: ACETAMINOPHEN 325 MG TABLET PO PRN ×2 (08:33→16:56)
[2023-05-27 09:24] VITALS: BP 100/58; PULSE 84; RESP 19; TEMP 99
[2023-05-27 19:29] VITALS: BP 102/57; PULSE 64; RESP 18; TEMP 98.8
[2023-05-27] MEDS: TEMAZEPAM 15 MG CAPSULE PO SCH (20:25)
[2023-05-28 04:05] VITALS: BP 107/70; PULSE 73; RESP 18; TEMP 98.4
[2023-05-28] MEDS: LORazepam 2 MG/ML VIAL IVP PRN (04:10)
[2023-05-28] MEDS: FLUoxetine HCL 20 MG CAPSULE PO SCH (08:19)
[2023-05-28] MEDS: ACETAMINOPHEN 325 MG TABLET PO PRN ×2 (08:20→20:03)
[2023-05-28 08:43] VITALS: BP 94/60; PULSE 79; RESP 18; TEMP 99
[2023-05-28 16:56] VITALS: BP 110/69; PULSE 70; RESP 19; TEMP 98.1
[2023-05-28] MEDS: TEMAZEPAM 15 MG CAPSULE PO SCH (20:02)
[2023-05-28 20:06] VITALS: BP 105/65; PULSE 79; RESP 18; TEMP 98.3
[2023-05-29 04:31] VITALS: BP 107/66; PULSE 71; RESP 18; TEMP 98.7
[2023-05-29] MEDS: ACETAMINOPHEN 325 MG TABLET PO PRN (04:36)
[2023-05-29] MEDS: FLUoxetine HCL 20 MG CAPSULE PO SCH (08:13)
[2023-05-29 09:24] VITALS: BP 124/70; PULSE 83; RESP 20; TEMP 98.4
[2023-05-29] MEDS ORDERED: FLUO20CA36 PO (10:05)
== END 2023-05-29 17:40 | DRG 897 ==
LOC: EMS 13:32 → 6S 16:26
PROVIDERS: ADMIT Internal Medicine; ATTEND Internal Medicine
DX: F11.93 Opioid use, unspecified with withdrawal (principal); F15.93 Other stimulant use, unspecified with withdrawal; Z20.822 Contact with and (suspected) exposure to COVID-19; D64.9 Anemia, unspecified; F99 Mental disorder, not otherwise specified; G47.00 Insomnia, unspecified; Z79.899 Other long term (current) drug therapy; Z98.891 History of uterine scar from previous surgery
CPT/HCPCS: 80053; 80307; 83690; 84703; 85025; G0480; J1885; J2060; J2405; J2765; J3490